=== PATIENT | male | born 1965 | race Caucasian/White ===

== ENCOUNTER 2025-03-08 14:34 | Outpatient (CLI) | payer OTHER, SELFPAY ==
[2025-03-08 14:53] LABS: Hemoglobin A1C 8.3 % (4.0-6.0)
[2025-03-08 15:21] LABS: Alanine Aminotransferase 23 U/L (12-78); Albumin Level 5.0 g/dl (3.5-5.0); Albumin/Globulin Ratio 2.3 (1.1-1.8); Alkaline Phosphatase 64 U/L (38-126); Anion Gap 14.7 mEq/L (5-15); Aspartate Amino Transferase 26 U/L (17-59); Bilirubin,Total 2.5 mg/dl (0.2-1.3); Blood Urea Nitrogen 23 mg/dl (9-20); Calcium 10.0 mg/dl (8.4-10.2); Carbon Dioxide 26 mmol/L (22.0-30.0); Chloride 97 mmol/L (98-107); Cholesterol 170 mg/dl (140-200); Creatinine,Serum 1.10 mg/dl (0.66-1.25); Estimated Glomerular Filt Rate 68 ml/min (>60); GFR (African American) 83 ML/MIN (>60); Globulin 2.2 g/dL (1.3-3.2); Glucose 117 mg/dl (74-100); HDL Cholesterol 50 mg/dl (40-60); Potassium 4.7 mmoL/L (3.5-5.1); Sodium 133 mmol/L (136-145); Total Protein,Serum 7.2 g/dl (6.3-8.2); Triglycerides 205 mg/dl (30-150)
[2025-03-08 15:37] LABS: Free T4 (Free Thyroxine) 0.33 ng/dl (0.78-2.19)
[2025-03-08 15:50] LABS: Thyroid Stimulating Hormone 44.80 uIU/mL (0.465-4.68)
[2025-03-10 14:12] LABS: Albumin, U <3.0 ug/mL (Not Estab.)
== END 2025-03-08 23:59 | disposition home or self-care (01) ==
LOC: LAB.DROPOF 14:35
PROVIDERS: PCP Internal Medicine; Visit Provider Internal Medicine
DX: Z00.00 Encounter for general adult medical examination without abnormal findings (principal); E11.9 Type 2 diabetes mellitus without complications; I10 Essential (primary) hypertension; Z13.29 Encounter for screening for other suspected endocrine disorder; E03.9 Hypothyroidism, unspecified; Z13.220 Encounter for screening for lipoid disorders; E78.5 Hyperlipidemia, unspecified
CPT/HCPCS: 80053; 80061; 82043; 82570; 83036; 84439; 84443